=== PATIENT | female | born 1990 | race Caucasian/White ===

== ENCOUNTER 2017-07-14 17:51 | Emergency (ER) | payer MEDICARE ==
[2012-01-30 09:58] VITALS: BMI 47.3
== END 2017-07-14 20:57 | disposition home or self-care (01) ==
LOC: D.ER 17:51
DX: M79.642 Pain in left hand (principal); M70.12 Bursitis, left hand; Y93.89 Activity, other specified; I12.9 Hypertensive chronic kidney disease with stage 1 through stage 4 chronic kidney disease, or unspecified chronic kidney disease; N18.9 Chronic kidney disease, unspecified

== ENCOUNTER 2017-08-03 12:10 | Emergency (ER) | payer MEDICARE ==
[2012-01-30 09:58] VITALS: BMI 47.3
== END 2017-08-03 15:45 | disposition home or self-care (01) ==
LOC: D.ER 12:10
DX: N61.0 Mastitis without abscess (principal)

== ENCOUNTER 2017-08-10 13:09 | Emergency (ER) | payer MEDICARE ==
[2012-01-30 09:58] VITALS: BMI 47.3
== END 2017-08-10 18:25 | disposition home or self-care (01) ==
LOC: D.ER 13:09
DX: N60.11 Diffuse cystic mastopathy of right breast (principal); I10 Essential (primary) hypertension

== ENCOUNTER → 2017-10-16 09:28 | Outpatient (CLI) | payer MEDICARE ==
[2012-01-30 09:58] VITALS: BMI 47.3
== END | disposition home or self-care (01) ==
LOC: D.MRI 09:28
DX: M25.551 Pain in right hip (principal); M87.051 Idiopathic aseptic necrosis of right femur

== ENCOUNTER 2017-10-16 11:06 | Emergency (ER) | payer MEDICARE ==
[2012-01-30 09:58] VITALS: BMI 47.3
== END 2017-10-16 16:12 | disposition home or self-care (01) ==
LOC: D.ER 11:06
DX: J06.9 Acute upper respiratory infection, unspecified (principal); J01.90 Acute sinusitis, unspecified; J20.9 Acute bronchitis, unspecified; I12.9 Hypertensive chronic kidney disease with stage 1 through stage 4 chronic kidney disease, or unspecified chronic kidney disease; N18.9 Chronic kidney disease, unspecified; I10 Essential (primary) hypertension; Z99.2 Dependence on renal dialysis

== ENCOUNTER 2017-11-08 05:23 | Day surgery (SDC) | payer MEDICARE ==
[~2017-11-08] VITALS: Ht 154.9 cm; Wt 117.5 kg
--- NOTE | ~2017-11-08 | OP ---
PATIENT NAME: ASTRID FLORENTINO MEDICAL RECORD: [id number] :86 LOCATION:D.OPS ADMISSION DATE: SURGEON: KAMARI HAMILTON MD DATE OF OPERATION: 11/08/2017 PREOPERATIVE DIAGNOSES: Carpal tunnel syndrome of the left wrist, right trochanteric bursitis. POSTOPERATIVE DIAGNOSES: Carpal tunnel syndrome of the left wrist, right trochanteric bursitis. PROCEDURE: Left carpal tunnel release, right hip injection. SURGEON: Kamari Hamilton MD ANESTHESIA: General. INTRAOPERATIVE COMPLICATIONS: None. SUMMARY OF PATHOLOGIC FINDINGS: The patient had a very tight transverse carpal ligament consistent with preoperative diagnosis of carpal tunnel syndrome. OPERATIVE SUMMARY IN DETAIL: After obtaining the appropriate preoperative orthopedic surgery consent as well as anesthetic consultation, evaluation, and clearance, the patient was brought to the operating room and placed on the operating table in supine position. After general laryngeal mask airway was administered, Esmarch bandage was used as a tourniquet. Midline incision was made in line with the fourth metacarpal ray taken down to the level of the distal transverse carpal ligament and this was gently incised. The median nerve was identified. Seaton elevator was then used to protect the median nerve. The entire transverse carpal ligament was released to the proximal wrist crease under direct visualization. The wound was irrigated and closed with 4-0 Prolene. Local infiltration was placed. Sterile dressings were then applied to the left carpal tunnel and the Esmarch was released. At this point, the area of the greater trochanter was prepped in the usual fashion and then a long spinal needle was used to ensure the appropriate depth, the greater trochanter was found nicely, and a combination of 5 cc of 0.25% Marcaine plain and 40 mg of Depo-Medrol were injected into the patient's hip. Having completed this, the patient was awakened and taken to recovery room in stable condition. All final needle and sponge counts were correct. TRANSINT:[id number] Voice Confirmation ID: [id number] DOCUMENT ID: [id number] KAMARI HAMILTON MD at 1535 CC: [id number] DICTATION DATE: 11/08/17 0905 COMSEC MANAGER: 11/08/17 1043 DEP [place] 11/08/17 [facility] [address] [place] [address]
[~2017-11-08 05:23] MED LIST: RENVELA800 MG PO; SENSIPAR60 MG PO
[2017-11-08 06:36] LABS: BASOPHILS 0.4 % (0-2); EOSINOPHILS 3.4 % (0-7); HEMATOCRIT 29.8 % (36.0-48.0); HEMOGLOBIN 10.1 g/dL (12-16); IMMATURE GRANULOCYTES 0.2 % (0-5); LYMPHOCYTES 32.5 % (15-50); MCH 32.9 pg (26.0-34.0); MCHC 33.9 g/dL (31.0-37.0); MCV 97.1 fL (80.0-100.0); MEAN PLATELET VOLUME 11.3 fL (7.4-10.4); MONOCYTES 7.4 % (2-11); NEUTROPHILS 56.1 % (40-80); PLATELET COUNT 129 10x3/uL (130-400); RBC 3.07 10x6/uL (4.00-5.40); RDW 15.3 % (11.5-14.5)
[2017-11-08] MEDS ORDERED: HYDROCODONE-APA1 TAB PO ×2 (06:50→09:07)
[2017-11-08] MEDS ORDERED: CYCLOBENZAPRINE10 MG PO (06:50)
[2017-11-08] MEDS ORDERED: VALIUM5 MG PO (06:51)
[2017-11-08] MEDS ORDERED: EPOGEN10000 U/ML SC (06:52)
[2017-11-08] MEDS ORDERED: VITAMIN D250000 UNIT PO (06:53)
[2017-11-08] MEDS ORDERED: NORVASC5 MG PO (06:53)
[2017-11-08 06:57] VITALS: BP 122/97; Ht 154.9 cm; Wt 117.5 kg
[2017-11-08 07:04] LABS: HCG URINE NEGATIVE (NEGATIVE)
[2017-11-08 07:12] LABS: APTT 32.2 SECONDS (22.8-39.4)
[2017-11-08 07:26] LABS: INR 1.15 (0.85-1.17); PROTIME 14.3 SECONDS (11.6-15.0)
[2017-11-08 07:27] LABS: ANION GAP 17.3 mmol/L (8-16); CALCIUM 8.1 mg/dL (8.5-10.1); CARBON DIOXIDE 26.4 mmol/L (21.0-32.0); CREATININE - SERUM 10.5 mg/dL (0.6-1.3); POTASSIUM - SERUM 5.7 mmol/L (3.5-5.1)
== END 2017-11-08 11:00 | disposition home or self-care (01) ==
LOC: D.OPS 05:23 → D.PAN 08:00 → D.OPS 08:15 → D.PAN 11:30 → D.OPS 11:30
PROVIDERS: Anesthesiology; Orthopaedic Surgery
DX: G56.02 Carpal tunnel syndrome, left upper limb (principal); M25.551 Pain in right hip; M70.61 Trochanteric bursitis, right hip; K21.9 Gastro-esophageal reflux disease without esophagitis; I12.9 Hypertensive chronic kidney disease with stage 1 through stage 4 chronic kidney disease, or unspecified chronic kidney disease; N18.9 Chronic kidney disease, unspecified; Z01.812 Encounter for preprocedural laboratory examination

== ENCOUNTER → 2017-11-29 10:39 | Outpatient (CLI) | payer MEDICARE ==
[2017-11-08 06:57] VITALS: BMI 49.0
[~2017-11-29 10:39] MED LIST changes: +CYCLOBENZAPRINE10 MG PO; +EPOGEN10000 U/ML SC; +HYDROCODONE-APA1 TAB PO; +NORVASC5 MG PO; +VALIUM5 MG PO; +VITAMIN D250000 UNIT PO
== END | disposition home or self-care (01) ==
LOC: D.MRI 10:39
DX: M25.552 Pain in left hip (principal)

== ENCOUNTER 2018-04-02 10:31 | Emergency (ER) | payer MEDICARE ==
[~2018-04-02] VITALS: Ht 154.9 cm; Wt 118.0 kg
[2018-04-02 10:41] VITALS: Ht 154.9 cm; Wt 118.0 kg
[2018-04-02] MEDS ORDERED: ELIQUIS2.5 MG PO (10:43)
[2018-04-02 11:18] LABS: BASOPHILS 0.4 % (0-2); EOSINOPHILS 1.9 % (0-7); HEMATOCRIT 29.6 % (36.0-48.0); HEMOGLOBIN 10.4 g/dL (12-16); IMMATURE GRANULOCYTES 0.3 % (0-5); LYMPHOCYTES 17.1 % (15-50); MCH 33.7 pg (26.0-34.0); MCHC 35.1 g/dL (31.0-37.0); MCV 95.8 fL (80.0-100.0); MONOCYTES 7.1 % (2-11); NEUTROPHILS 73.2 % (40-80); PLATELET COUNT 148 10x3/uL (130-400); RBC 3.09 10x6/uL (4.00-5.40); RDW 15.6 % (11.5-14.5); WBC 7.4 10x3/uL (4.8-10.8)
[2018-04-02 11:29] LABS: ALBUMIN 3.9 g/dL (3.4-5.0); ANION GAP 16.6 mmol/L (8-16); BILIRUBIN - TOTAL 0.45 mg/dL (0.2-1.3); CALCIUM 8.2 mg/dL (8.5-10.1); CARBON DIOXIDE 28.3 mmol/L (21.0-32.0); CREATININE - SERUM 8.9 mg/dL (0.6-1.3); POTASSIUM - SERUM 4.9 mmol/L (3.5-5.1); PROTEIN - SERUM 8.6 g/dL (6.4-8.2)
[2018-04-02] MEDS ORDERED: HYDROCODONE-APA1 TAB PO (15:15)
[2018-04-02 15:32] VITALS: BP 162/89
== END 2018-04-02 15:32 ==
LOC: D.ER 10:31
PROVIDERS: Emergency Medicine
DX: R10.32 Left lower quadrant pain (principal); N83.8 Other noninflammatory disorders of ovary, fallopian tube and broad ligament; K21.9 Gastro-esophageal reflux disease without esophagitis

== ENCOUNTER 2018-07-19 14:23 | Emergency (ER) | payer MEDICARE ==
[~2018-07-19] VITALS: Ht 154.9 cm; Wt 3.3 kg
[~2018-07-19 14:23] MED LIST changes: +ELIQUIS2.5 MG PO
[2018-07-19 14:34] VITALS: Ht 154.9 cm; Wt 3.3 kg
[2018-07-19 17:50] VITALS: BP 180/91
== END 2018-07-19 17:51 | disposition home or self-care (01) ==
LOC: D.ER 14:23
DX: G43.909 Migraine, unspecified, not intractable, without status migrainosus (principal); N18.6 End stage renal disease; Z99.2 Dependence on renal dialysis; R11.2 Nausea with vomiting, unspecified; H53.9 Unspecified visual disturbance; E07.9 Disorder of thyroid, unspecified

== ENCOUNTER 2018-08-25 16:02 | Emergency (ER) | payer MEDICARE ==
[2018-08-25 17:52] LABS: BASOPHILS 0.8 % (0-2); EOSINOPHILS 3.1 % (0-7); HEMOGLOBIN 8.8 g/dL (12-16); IMMATURE GRANULOCYTES 0.2 % (0-5); LYMPHOCYTES 29.6 % (15-50); MCH 33.8 pg (26.0-34.0); MCHC 35.2 g/dL (31.0-37.0); MCV 96.2 fL (80.0-100.0); MEAN PLATELET VOLUME 11.1 fL (7.4-10.4); MONOCYTES 5.6 % (2-11); NEUTROPHILS 60.7 % (40-80); RDW 14.1 % (11.5-14.5); WBC 4.8 10x3/uL (4.8-10.8)
[2018-08-25 17:56] LABS: PLATELET COUNT 111 10x3/uL (130-400)
[2018-08-25 18:10] LABS: ALBUMIN 3.6 g/dL (3.4-5.0); ALKALINE PHOSPHATASE 50 U/L (46-116); ALT (SGPT) 41 U/L (10-68); BILIRUBIN - TOTAL 0.48 mg/dL (0.2-1.3); CALC OSMOLALITY 286 mosm/kg (275-300); CALCIUM 8.2 mg/dL (8.5-10.1); CARBON DIOXIDE 29.2 mmol/L (21.0-32.0); CHLORIDE - SERUM 97 mmol/L (98-107); GLUCOSE 91 mg/dL (74-106); POTASSIUM - SERUM 5.2 mmol/L (3.5-5.1); PROTEIN - SERUM 7.1 g/dL (6.4-8.2); SODIUM 136 mmol/L (136-145); UREA NITROGEN 55 mg/dL (7-18); eGFR NON AFRICAN AMERICAN 5 mL/min (90-120)
[2018-08-25 18:20] LABS: CKMB 0.5 U/L (0.0-3.6); CREATINE KINASE 28 UL (21-215); PRO BNP 8191 pg/mL (0-125)
[2018-08-25 18:22] LABS: APTT 32.1 SECONDS (22.8-39.4); INR 1.13 (0.85-1.17)
[2018-08-25 18:23] LABS: D-DIMER-QUANTITATIVE 0.34 ug/mLFEU (0.20-0.54)
[2018-08-25 18:30] LABS: TROPONIN-I < 0.017 ng/mL (0.000-0.060)
== END 2018-08-25 19:58 | disposition home or self-care (01) ==
LOC: D.ER 16:02
PROVIDERS: Family Medicine
DX: R07.89 Other chest pain (principal); D64.9 Anemia, unspecified; R06.09 Other forms of dyspnea

== ENCOUNTER → 2018-08-27 14:45 | Outpatient (CLI) | payer MEDICARE ==
[2018-08-25 16:12] VITALS: BMI 48.6
[~2018-08-27 14:45] MED LIST changes: +PEPCID AC20 MG PO; +TUMS X-STR300 MG PO; +ZANAFLEX6 MG PO
== END | disposition home or self-care (01) ==
LOC: D.NM 14:45
DX: R07.9 Chest pain, unspecified (principal)

== ENCOUNTER 2018-08-27 17:50 | Emergency (ER) | payer MEDICARE ==
[~2018-08-27] VITALS: Ht 154.9 cm; Wt 116.8 kg
[~2018-08-27 17:50] MED LIST changes: -PEPCID AC20 MG PO; -TUMS X-STR300 MG PO; -ZANAFLEX6 MG PO
[2018-08-27 17:57] VITALS: Ht 154.9 cm; Wt 116.8 kg
[2018-08-27] MEDS ORDERED: TUMS X-STR300 MG PO (18:00)
[2018-08-27] MEDS ORDERED: PEPCID AC20 MG PO (18:01)
[2018-08-27] MEDS ORDERED: ZANAFLEX6 MG PO (18:01)
[2018-08-27 20:47] VITALS: BP 158/99
== END 2018-08-27 20:47 | disposition home or self-care (01) ==
LOC: D.ER 17:50
DX: R07.89 Other chest pain (principal); N18.6 End stage renal disease; Z99.2 Dependence on renal dialysis; G40.909 Epilepsy, unspecified, not intractable, without status epilepticus

== ENCOUNTER 2018-08-31 13:09 | Emergency (ER) | payer MEDICARE ==
[~2018-08-31] VITALS: Ht 154.9 cm; Wt 115.7 kg
[~2018-08-31 13:09] MED LIST changes: +PEPCID AC20 MG PO; +TUMS X-STR300 MG PO; +ZANAFLEX6 MG PO
[2018-08-31 13:23] VITALS: Ht 154.9 cm; Wt 115.7 kg
[2018-08-31] MEDS ORDERED: IBUPROFEN400 MG PO (18:29)
[2018-08-31 19:05] VITALS: BP 165/95
[2018-09-04] MEDS ORDERED: MIRALAX17 GM PO (09:36)
[2018-09-04] MEDS ORDERED: [UNRECOGNIZED DRUG - CODE] PO (09:37)
== END 2018-08-31 19:07 | disposition home or self-care (01) ==
LOC: D.ER 13:09
DX: R07.9 Chest pain, unspecified (principal); N18.6 End stage renal disease; Z99.2 Dependence on renal dialysis; G40.909 Epilepsy, unspecified, not intractable, without status epilepticus

== ENCOUNTER 2018-09-05 09:13 | Day surgery (SDC) | payer MEDICARE ==
[~2018-09-05] VITALS: Ht 154.9 cm; Wt 120.7 kg
[~2018-09-05 09:13] MED LIST changes: +IBUPROFEN400 MG PO; +MIRALAX17 GM PO; +[UNRECOGNIZED DRUG - CODE] PO
[2018-09-05 09:54] LABS: HEMATOCRIT 29.9 % (36.0-48.0); HEMOGLOBIN 10.4 g/dL (12-16); MCH 34.1 pg (26.0-34.0); MCHC 34.8 g/dL (31.0-37.0); MEAN PLATELET VOLUME 11.5 fL (7.4-10.4); RBC 3.05 10x6/uL (4.00-5.40); RDW 14.5 % (11.5-14.5); WBC 4.9 10x3/uL (4.8-10.8)
[2018-09-05 09:57] VITALS: BP 154/81; Ht 154.9 cm; Wt 120.7 kg
[2018-09-05 10:02] LABS: HCG SERUM NEGATIVE (NEGATIVE)
[2018-09-05 10:03] LABS: ANION GAP 16.6 mmol/L (8-16); CALCIUM 8.7 mg/dL (8.5-10.1); CARBON DIOXIDE 27.3 mmol/L (21.0-32.0); CREATININE - SERUM 7.6 mg/dL (0.6-1.3); POTASSIUM - SERUM 4.9 mmol/L (3.5-5.1)
[2018-09-05] MEDS ORDERED: DILAUDID2 MG PO (12:53)
--- NOTE | 2018-09-05 14:29 | NUR ---
IV REMOVED, CATHETER INTACT.
--- NOTE | 2018-09-05 15:15 | NUR ---
PATIENT LEFT UNIT VIA WHEELCHAIR
--- NOTE | 2018-09-16 08:56 | OP ---
PATIENT NAME: ASTRID FLORENTINO MEDICAL RECORD: [id number] :86 LOCATION:D.OPS ADMISSION DATE: SURGEON: KAMARI HAMILTON MD DATE OF OPERATION: 09/05/2018 PREOPERATIVE DIAGNOSIS: De Quervain's syndrome, bilateral wrists. POSTOPERATIVE DIAGNOSIS: De Quervain's syndrome, bilateral wrists. PROCEDURES: 1. De Quervain's release, right wrist. 2. De Quervain's release, left wrist. SURGEON: Kamari Hamilton MD ANESTHESIA: General. INTRAOPERATIVE COMPLICATIONS: None. SUMMARY OF PATHOLOGIC FINDINGS: The patient had tight first compartment on the radial aspect, consistent with preop diagnosis of bilateral De Quervain's stenosing tenosynovitis. No tourniquets were utilized as the patient had an access for dialysis in one arm and an old access for dialysis in the other. These were done without tourniquets. OPERATIVE SUMMARY IN DETAIL: After obtaining the appropriate preoperative orthopedic surgery consent as well as anesthetic consultation, evaluation, and clearance, the patient was brought to the operating room and placed on the operating table in the supine position. After general laryngeal mask was administered, bilateral lower extremities were prepped and draped in routine sterile fashion in tandem. Attention was first turned to the left upper extremity. The area was infiltrated locally with 0.25% Marcaine with epinephrine. Incision was then taken down to the first dorsal compartment sheath. This was incised in its entirety and noted fluid as well as tendinopathy was seen. Small amount of the synovium was excised, being the portion that was hemorrhagic. Wound was then irrigated and closed with 4-0 Prolene in routine running fashion. Sterile dressings were applied. Attention was then turned to the right upper extremity. Again, on the right upper extremity, no tourniquet was used. The area was locally infiltrated with 0.25% Marcaine with epinephrine. Incision was taken down to the first dorsal compartment and the first dorsal compartment was released. Again, the patient was seen to have tenosynovitis. Portions of the synovium were removed. Again, the wound was irrigated and closed with 4-0 Prolene in routine interrupted fashion. Sterile dressings were applied. The patient was awakened and taken to the recovery room in stable condition. All final needle and sponge counts were correct. TRANSINT:[id number] Voice Confirmation ID: [id number] DOCUMENT ID: [id number] OPERATIVE REPORT [id number] ASTRID FLORENTINO MD, KAMARI ESCALONA at 0856 CC: [id number] DICTATION DATE: 09/15/18 1110 INSTRUMENTAL TEACHER: 09/15/18 1512 [facility] 09/05/18 [place] [id number] [place] [id number]
== END 2018-09-05 15:15 | disposition home or self-care (01) ==
LOC: D.OPS 09:13 → D.PAN 12:45 → D.OPS 15:15
PROVIDERS: Anesthesiology
DX: M65.4 Radial styloid tenosynovitis [de Quervain] (principal); Z01.812 Encounter for preprocedural laboratory examination

== ENCOUNTER → 2018-12-31 07:41 | Outpatient (CLI) | payer MEDICARE ==
[~2018-12-31 07:41] MED LIST changes: +DILAUDID2 MG PO; +PROZAC20 MG PO
== END | disposition home or self-care (01) ==
LOC: D.NM 07:41
DX: Z86.711 Personal history of pulmonary embolism (principal); R06.02 Shortness of breath

== ENCOUNTER 2018-12-31 09:06 | Emergency (ER) | payer MEDICARE ==
[~2018-12-31] VITALS: Ht 154.9 cm; Wt 114.8 kg
[~2018-12-31 09:06] MED LIST changes: -PROZAC20 MG PO
[2018-12-31 09:10] VITALS: Ht 154.9 cm; Wt 114.8 kg
[2018-12-31] MEDS ORDERED: PROZAC20 MG PO (09:19)
[2018-12-31] MEDS ORDERED: NORVASC5 MG PO (09:20)
[2018-12-31 11:56] VITALS: BP 184/90
== END 2018-12-31 11:58 | disposition home or self-care (01) ==
LOC: D.ER 09:06
DX: G43.909 Migraine, unspecified, not intractable, without status migrainosus (principal); N18.6 End stage renal disease

== ENCOUNTER 2019-02-16 18:39 | Emergency (ER) | payer MEDICARE ==
[~2019-02-16 18:39] MED LIST changes: +PROZAC20 MG PO
[2019-02-16 18:47] VITALS: BMI 48.4
[2019-02-16 19:39] LABS: BASOPHILS 0.5 % (0-2); EOSINOPHILS 1.6 % (0-7); HEMATOCRIT 28.9 % (36.0-48.0); IMMATURE GRANULOCYTES 0.1 % (0-5); LYMPHOCYTES 16.1 % (15-50); MCH 32.6 pg (26.0-34.0); MCHC 34.6 g/dL (31.0-37.0); MCV 94.1 fL (80.0-100.0); MEAN PLATELET VOLUME 11.3 fL (7.4-10.4); MONOCYTES 6.7 % (2-11); PLATELET COUNT 134 10x3/uL (130-400); RBC 3.07 10x6/uL (4.00-5.40); RDW 13.4 % (11.5-14.5); WBC 7.9 10x3/uL (4.8-10.8)
[2019-02-16 20:00] LABS: ALBUMIN 3.8 g/dL (3.4-5.0); ANION GAP 17.4 mmol/L (8-16); BILIRUBIN - TOTAL 0.86 mg/dL (0.2-1.3); CALCIUM 8.8 mg/dL (8.5-10.1); CARBON DIOXIDE 29.8 mmol/L (21.0-32.0); POTASSIUM - SERUM 5.2 mmol/L (3.5-5.1); PROTEIN - SERUM 7.6 g/dL (6.4-8.2)
[2019-02-16 21:19] VITALS: BP 176/86
== END 2019-02-16 21:20 | disposition home or self-care (01) ==
LOC: D.ER 18:39
PROVIDERS: Family Medicine
DX: N83.209 Unspecified ovarian cyst, unspecified side (principal); R10.9 Unspecified abdominal pain; J02.9 Acute pharyngitis, unspecified

== ENCOUNTER 2019-02-17 17:29 | Emergency (ER) | payer MEDICARE ==
[~2019-02-17] VITALS: Ht 154.9 cm; Wt 116.1 kg
[2019-02-17 18:07] VITALS: Ht 154.9 cm; Wt 116.1 kg
[2019-02-17 20:30] VITALS: BP 189/95
== END 2019-02-17 22:25 | disposition home or self-care (01) ==
LOC: D.ER 17:29
DX: R10.31 Right lower quadrant pain (principal); I12.0 Hypertensive chronic kidney disease with stage 5 chronic kidney disease or end stage renal disease; N18.6 End stage renal disease; Z99.2 Dependence on renal dialysis

== ENCOUNTER → 2019-07-22 16:49 | Outpatient (CLI) | payer MEDICARE ==
[2019-02-17 18:07] VITALS: BMI 48.4
== END | disposition home or self-care (01) ==
LOC: D.LABREF 16:49
PROVIDERS: ATTEND Orthopaedic Surgery
DX: M87.852 Other osteonecrosis, left femur (principal)

== ENCOUNTER 2021-03-03 11:53 | Emergency (ER) | payer MEDICARE ==
[~2021-03-03] VITALS: Ht 154.9 cm; Wt 109.1 kg
[2021-03-03 11:59] VITALS: BP 157/84; Ht 154.9 cm; Wt 109.1 kg
[2021-03-03] MEDS ORDERED: ELIQUIS5 MG PO (12:04)
[2021-03-03 12:34] LABS: BASOPHILS 0.7 % (0-2); EOSINOPHILS 0.8 % (0-7); HEMATOCRIT 25.3 % (36.0-48.0); HEMOGLOBIN 8.8 g/dL (12-16); MCH 34.3 pg (26.0-34.0); MCHC 34.8 g/dL (31.0-37.0); MCV 98.6 fL (80.0-100.0); MEAN PLATELET VOLUME 10.2 fL (7.4-10.4); MONOCYTES 11.1 % (2-11); NEUTROPHILS 68.4 % (40-80); RBC 2.57 10x6/uL (4.00-5.40); RDW 14.8 % (11.5-14.5)
[2021-03-03 12:45] LABS: ALBUMIN 3.4 g/dL (3.4-5.0); BILIRUBIN - TOTAL 0.55 mg/dL (0.2-1.3); CALCIUM 8.6 mg/dL (8.5-10.1); CARBON DIOXIDE 24.6 mmol/L (21.0-32.0); CREATININE - SERUM 16.4 mg/dL (0.6-1.3); PROTEIN - SERUM 7.5 g/dL (6.4-8.2)
[2021-03-03 12:50] LABS: ANION GAP 20.4 mmol/L (8-16)
[2021-03-03 13:03] LABS: PLATELET COUNT 88 10x3/uL (130-400)
[2021-03-03 14:18] LABS: PLATELET ESTIMATE DECREASED
== END 2021-03-03 12:00 ==
LOC: D.ER 11:53
PROVIDERS: Family Medicine
DX: K64.9 Unspecified hemorrhoids (principal); K21.9 Gastro-esophageal reflux disease without esophagitis; N18.6 End stage renal disease